=== PATIENT | male | born 1990 | race Caucasian/White ===

== ENCOUNTER → 2019-10-20 | Outpatient (CLI) | payer SELFPAY ==
[~2019-10-20] MED LIST: HOLD METFORMIN - RECEIVED CONTRAST 20 ML VIAL IV SCH; IOHEXOL 350 MG/ML 100 ML (OMNIPAQUE 350) VIAL IV ONE
--- NOTE | 2019-10-20 10:16 | Diagnostic Imaging Report ---
PROCEDURE: CT chest and abdomen with contrast. TECHNIQUE: Multiple contiguous axial images were obtained through the chest and abdomen after the administration of intravenous contrast. Auto Exposure Controls were utilized during the CT exam to meet ALARA standards for radiation dose reduction. INDICATION: Indication: Mid and upper abdominal pain of 2 weeks' duration, loss of appetite. [facility], not provided in the history of a known malignant diagnosis. CHEST: Thoracic aorta is patent and nonaneurysmal. No pleural or pericardial effusion. No focal alveolar consolidation, suspicious nodularity or dominant lung mass. There is no thoracic adenopathy. There was no acute or suspect chest wall pathology. ABDOMEN: Kidneys unobstructed and well-perfused. The liver is enlarged in its transverse dimension measuring 31 cm its density and enhancement features unremarkable. Vascularity showed normal enhancement. The gallbladder and bile ducts normal. Pancreas and its duct in the peripancreatic fat unremarkable. The spleen within normal limits of size and is nonfocal. There is no adrenal nodule. The aorta is patent and nonaneurysmal. There is no ascites, abscess, hematoma or acute fluid collection. IMPRESSION : CHEST: Negative ABDOMEN: Hepatomegaly otherwise normal CT abdomen. Dictated by: Dictated on workstation # [id number]
== END ==
LOC: RAD 07:30
PROVIDERS: ATTEND Nurse Practitioner Family
DX: J98.11 Atelectasis (principal); R16.0 Hepatomegaly, not elsewhere classified
CPT/HCPCS: 71260; 74160